=== PATIENT | female | born 1965 | race Two or more races ===

== ENCOUNTER 2021-11-08 12:07 | Inpatient (IN) | payer MEDICAID, OTHER ==
[~2021-11-08] VITALS: Ht 154.9 cm; Wt 75.2 kg
[2021-11-08] MEDS ORDERED: SODIUM CHLORIDE 0.9% 1,000 ML IVB ONE (12:30)
[2021-11-08 13:08] LABS: Basophils # (auto) 0.1 10 ^3/uL (0-0.2); Basophils % (auto) 0.6 % (0.0-2.0); Eosinophils # (auto) 0 10 ^3/uL (0-0.8); Hematocrit 43.2 % (36.0-46.0); Hemoglobin 14.3 g/dL (12.2-16.2); Lymphocytes # (auto) 0.5 10 ^3/uL (0.4-5.4); Lymphocytes % (auto) 4.2 % (10.0-50.0); Mean Corpuscular Hemoglobin 30.4 pg (28.0-32.0); Mean Corpuscular Hgb Conc. 33.2 g/dL (32.0-36.0); Mean Corpuscular Volume 91.3 fL (80.0-100.0); Monocytes # (auto) 0.2 10 ^3/uL (0-1.3); Monocytes % (auto) 1.9 % (0.0-12.0); Neutrophils % (auto) 93.3 % (37.0-80.0); Red Blood Cells 4.73 10^6/uL (4.0-5.20); Red Cell Distribution Width 13.4 % (11.8-14.3); White Blood Cell 12.9 10^3/uL (4.4-10.8)
[2021-11-08 13:23] LABS: BUN/Creatinine Ratio 14.3; Calcium 8.3 mg/dL (8.5-10.1)
[2021-11-08 13:24] LABS: Bilirubin, Total 0.3 mg/dL (0.2-1.0); Total Protein 7.4 g/dL (6.4-8.2)
[2021-11-08] MEDS ORDERED: LORazepam 2MG/ML-1ML VIAL ONE (13:35)
[2021-11-08] MEDS ORDERED: LORazepam 2MG/ML-1ML VIAL IV ONE (14:00)
[2021-11-08] MEDS ORDERED: ONDANSETRON HCL 4 MG/2 ML VIAL IV ONE (14:00)
[2021-11-08 16:31] LABS: Urine Bacteria FEW /hpf (None Seen); Urine Blood Negative /uL (Negative); Urine Mucus FEW (None Seen); Urine Specific Gravity 1.017 (1.001-1.035); Urine WBC 19 /hpf (0 - 5)
[2021-11-08 16:43] LABS: Amphetamine Screen, Urine NEGATIVE (NEGATIVE); Barbiturate Scree,Urine NEGATIVE (NEGATIVE); Benzodiazephine Screen, Urine NEGATIVE (NEGATIVE); Cannabinoid Screen, Urine NEGATIVE (NEGATIVE); Cocaine Screen, Urine NEGATIVE (NEGATIVE); Opiate Scree,Urine NEGATIVE (NEGATIVE); Phencyclidine Screen, Urine NEGATIVE (NEGATIVE)
[2021-11-08] MEDS ORDERED: cefTRIAXone 1GM/50ML D5W 50 ML IV ONE (17:45)
[2021-11-08] MEDS ORDERED: ONDANSETRON HCL 4 MG/2 ML VIAL IV PRN (18:45)
[2021-11-08] MEDS ORDERED: ACETAMINOPHEN 325 MG TAB PO PRN (18:45)
[2021-11-08] MEDS ORDERED: DEXTROSE (50%) 50ML SYRG IV PRN (18:45)
[2021-11-08] MEDS ORDERED: DOCUSATE SOD 100 MG CAP PO PRN (18:45)
[2021-11-08] MEDS ORDERED: LEVO75TA6 PO (21:07)
[2021-11-08] MEDS ORDERED: METF-370 PO (21:07)
[2021-11-08] MEDS: ACCU-CHEK COMFORT CURVE STRIP VI SCH (22:01)
[2021-11-08] MEDS: InsuLIN REG 1unit/0.01ml Soln (100units/ml) SC SCH (22:05)
[2021-11-08] MEDS ORDERED: LORazepam 2MG/ML-1ML VIAL IV PRN ×2 (22:30)
[2021-11-08 23:07] VITALS: BP 105/68
[2021-11-09 05:38] VITALS: BP 102/74
[2021-11-09] MEDS: InsuLIN REG 1unit/0.01ml Soln (100units/ml) SC SCH ×4 (06:36→22:00)
[2021-11-09] MEDS: ACCU-CHEK COMFORT CURVE STRIP VI SCH ×4 (06:36→22:00)
[2021-11-09 09:05] VITALS: BP 112/69
[2021-11-09] MEDS: predniSONE 20 MG TAB PO SCH (10:43)
[2021-11-09] MEDS: cefTRIAXone 1GM/50ML D5W 50 ML IV SCH (10:44)
[2021-11-09 13:29] VITALS: BP 115/75
[2021-11-09] MEDS ORDERED: GADOTERATE MEG 7.5 MMOL/15ml INJ (0.5MMOL/ml) IV ONE (13:48)
[2021-11-09 17:09] VITALS: BP 119/77
[2021-11-09 20:57] VITALS: BP 113/72
[2021-11-10 05:30] VITALS: BP 115/76
[2021-11-10] MEDS: InsuLIN REG 1unit/0.01ml Soln (100units/ml) SC SCH ×2 (06:58→11:30)
[2021-11-10] MEDS: ACCU-CHEK COMFORT CURVE STRIP VI SCH ×2 (06:58→11:41)
[2021-11-10] MEDS ORDERED: LEVE500T32 PO (08:24)
[2021-11-10 09:00] VITALS: BP 121/70
[2021-11-10] MEDS: cefTRIAXone 1GM/50ML D5W 50 ML IV SCH (10:15)
[2021-11-10] MEDS: predniSONE 20 MG TAB PO SCH (10:15)
[2021-11-10 13:00] VITALS: BP 131/72
== END 2021-11-10 13:45 | disposition home or self-care (01) | DRG 53 ==
LOC: EDBD 12:07 → ER 12:07 → TELE 18:37 → TELE-EAST 19:55
PROVIDERS: ADMIT Internal Medicine; ATTEND Internal Medicine Pulmonary Disease
DX: G40.409 Other generalized epilepsy and epileptic syndromes, not intractable, without status epilepticus (principal); C71.9 Malignant neoplasm of brain, unspecified; N39.0 Urinary tract infection, site not specified; R21 Rash and other nonspecific skin eruption; Z79.899 Other long term (current) drug therapy; Z80.3 Family history of malignant neoplasm of breast; Z20.822 Contact with and (suspected) exposure to COVID-19; E11.9 Type 2 diabetes mellitus without complications; Z79.84 Long term (current) use of oral hypoglycemic drugs
CPT/HCPCS: 36415; 70450; 70551; 70553; 71045; 80053; 80307; 80320; 81001; 82550; 82962; 83036; 83605; 84146; 84443; 85025; 87040; 93005; 96361; 96365; 96368; 96375; G0378; J0696; J1815; J2405; J7060